=== PATIENT | female | born 1965 | race Caucasian/White ===

== ENCOUNTER 2017-09-13 11:44 | Emergency (ER) | payer MEDICARE, OTHER ==
[~2017-09-13] VITALS: Ht 162.6 cm; Wt 113.4 kg
[~2017-09-13 11:44] MED LIST: AMBIEN 5 MG TABL5 M1 PO; AMLODIPINE BESY10 MG PO; ASPIR 8181 M1 PO; AZOR 5-20 MG T1 EACH; CLONAZEPAM 0.50.5 M1 PO; FISH OIL 1,001000 M2; HYDROCODONE-AP1 EAC6 PO; INVOKANA100 MG PO; INVOKANA300 MG PO; JANUVIA100 MG PO; JANUVIA50 MG PO; LEVSIN0.125 MG PO; LEXAPRO 10 MG T10 M1 PO; METFORMIN HCL500 MG PO; MINIPRIN81 MG; NEURONTIN 300300 M1 PO; SIMVASTATIN40 MG PO; ZOCOR80 MG
[2017-09-13] MEDS ORDERED: INVOKANA100 MG PO (11:55)
[2017-09-13] MEDS ORDERED: JANUVIA25 MG PO (11:55)
[2017-09-13] MEDS ORDERED: PROPRANOLOL 1010 MG PO (11:56)
[2017-09-13 12:02] LABS: URINE BILIRUBIN NEGATIVE (Negative); URINE BLOOD NEGATIVE (Negative); URINE CLARITY CLEAR; URINE COLOR YELLOW; URINE GLUCOSE-RANDOM 3+ (Negative); URINE KETONES NEGATIVE (Negative); URINE LEUKOCYTES-REFLEX NEGATIVE (Negative); URINE NITRITE-REFLEX NEGATIVE (Negative); URINE PROTEIN NEGATIVE (Negative); URINE SPECIFIC GRAVITY 1.015 (1.005-1.030); URINE UROBILINOGEN 0.2 E.U./dl (0.2-1.0)
[2017-09-13 12:43] LABS: ABSOLUTE EOSINOPHILS 0.1 thou/uL (0.0-0.7); ABSOLUTE LYMPHOCYTES 2.4 thou/uL (0.8-5.3); ABSOLUTE MONOCYTES 0.6 thou/uL (0.0-1.2); ABSOLUTE NEUTROPHILS 3.7 thou/uL (1.6-8.1); ANION GAP 10 mmol/L (7-16); BASOPHILS 0.6 %; BUN 17 mg/dL (7-18); CALCIUM 9.3 mg/dL (8.5-10.1); CHLORIDE 104 mmol/L (98-107); CO2 25 mmol/L (21-32); CREATININE 0.5 mg/dL (0.6-1.3); EOSINOPHILS 0.9 %; GLUCOSE 116 mg/dL (70-99); HEMATOCRIT 44.6 % (37.0-47.0); HEMOGLOBIN 15.3 gm/dL (12.0-15.0); LYMPHOCYTES 34.8 %; MCH 30.4 pg (26.0-34.0); MCHC 34.2 g/dL (28.0-37.0); MCV 88.9 fL (80.0-100.0); MONOCYTES 9.4 %; MPV 7.5 fl. (7.2-11.1); NUCLEATED RBCS 0 /100WBC; PLATELET COUNT* 202 thou/uL (150-400); POLYS 54.3 %; POTASSIUM 4.7 mmol/L (3.5-5.1); RBC 5.02 mil/uL (4.20-5.00); RDW-CV 12.9 % (10.5-14.5); SODIUM 139 mmol/L (136-145); WBC 6.9 thou/uL (4.0-11.0)
[2017-09-13 12:49] LABS: ALBUMIN 3.9 g/dL (3.4-5.0); ALKALINE PHOSPHATASE 86 U/L (46-116); LIPASE 137 U/L (73-393); SGOT 64 U/L (15-37); SGPT 103 U/L (30-65); TOTAL BILIRUBIN 0.5 mg/dL (<0.1-1.0); TOTAL PROTEIN 7.3 g/dL (6.4-8.2); TROPONIN-I LEVEL <0.06 ng/mL (<0.06)
[2017-09-13 13:03] LABS: PLATELET ESTIMATE ADEQUATE
[2017-09-13] MEDS ORDERED: CIPROFLOXACIN500 M1 PO (13:47)
[2017-09-13 14:06] VITALS: BP 195/98
--- NOTE | 2017-09-14 12:32 | EKG ---
[place] [address] ELECTROCARDIOGRAM REPORT Name: PAVITHRA PURI Room: [facility]#: [id number] Admission: 09/13/17 Attend Phys: Discharge: 09/13/17 Date of : 63 Report #: [id number] THIS REPORT FOR: //name// [facility] ED Test Date: 2017-09-13 Test Time: 12:04:44 Pat Name: PAVITHRA PURI Department: Room: Gender: F Accounts Payable Assistant: DENI : 1965 Requested By: Per Rocha Order Number: [id number] MD: Lars Benito Measurements Intervals [place] Rate: 91 P: 55 [place]: 132 QRS: 50 QRSD: 96 T: 58 QT: 366 QTc: 451 Interpretive Statements Sinus rhythm Baseline wander in lead(s) V2,V5 Compared to ECG 10/05/2010 09:04:42 Sinus tachycardia no longer present ST (T wave) deviation no longer present Electronically Signed On 09-14-2017 12:32:41 PRODUCT PLANNER by Lars Benito [email or web address] <ELECTRONICALLY SIGNED> By: Lars Benito MD, FAC 09/14/17 1232 1204 1204 Lars Benito MD, [facility] /EPI
== END 2017-09-13 14:07 | disposition home or self-care (01) ==
LOC: M.ERS 11:44
PROVIDERS: Family Medicine
DX: R19.7 Diarrhea, unspecified (principal); I10 Essential (primary) hypertension; E11.9 Type 2 diabetes mellitus without complications; E78.5 Hyperlipidemia, unspecified; M19.90 Unspecified osteoarthritis, unspecified site; G47.30 Sleep apnea, unspecified; Z90.710 Acquired absence of both cervix and uterus

== ENCOUNTER 2018-05-03 07:09 | Emergency (ER) | payer MEDICARE, OTHER ==
[~2018-05-03] VITALS: Ht 162.6 cm; Wt 117.9 kg
[~2018-05-03 07:09] MED LIST changes: +CIPROFLOXACIN500 M1 PO; +JANUVIA25 MG PO; +PROPRANOLOL 1010 MG PO
[2018-05-03] MEDS ORDERED: LIPITOR 20 MG T20 M1 PO (07:25)
[2018-05-03] MEDS ORDERED: NORVASC5 MG PO (07:25)
[2018-05-03] MEDS ORDERED: AMITRIPTYLINE H25 M2 PO (07:25)
[2018-05-03] MEDS ORDERED: FARXIGA5 MG PO (07:26)
[2018-05-03] MEDS ORDERED: ESCITALOPRAM OX20 MG PO (07:26)
[2018-05-03] MEDS ORDERED: ZANAFLEX4 MG PO (07:27)
[2018-05-03] MEDS ORDERED: TRULICITY1.5 MG/0.5 INJECTION (07:28)
[2018-05-03] MEDS ORDERED: ACETAMINOPHEN-1 EAC1 PO (07:34)
[2018-05-03] MEDS ORDERED: AMOXICILLI400 MG/5 M PO (07:34)
[2018-05-03] MEDS ORDERED: Magic Mouthwash (07:34)
[2018-05-03 07:37] VITALS: BP 158/101
== END 2018-05-03 07:41 | disposition home or self-care (01) ==
LOC: M.ERS 07:09
DX: J03.80 Acute tonsillitis due to other specified organisms (principal); B96.89 Other specified bacterial agents as the cause of diseases classified elsewhere; I10 Essential (primary) hypertension; E78.5 Hyperlipidemia, unspecified; E11.9 Type 2 diabetes mellitus without complications; M79.7 Fibromyalgia; M19.90 Unspecified osteoarthritis, unspecified site; G47.30 Sleep apnea, unspecified; Z90.710 Acquired absence of both cervix and uterus

== ENCOUNTER 2018-05-14 09:51 | Emergency (ER) | payer MEDICARE, OTHER ==
[~2018-05-14] VITALS: Ht 162.6 cm; Wt 117.9 kg
[~2018-05-14 09:51] MED LIST changes: +ACETAMINOPHEN-1 EAC1 PO; +AMITRIPTYLINE H25 M2 PO; +AMOXICILLI400 MG/5 M PO; +ESCITALOPRAM OX20 MG PO; +FARXIGA5 MG PO; +LIPITOR 20 MG T20 M1 PO; +Magic Mouthwash; +NORVASC5 MG PO; +TRULICITY1.5 MG/0.5 INJECTION; +ZANAFLEX4 MG PO
[2018-05-14 10:37] LABS: ABSOLUTE LYMPHOCYTES 1.5 thou/uL (0.8-5.3); ABSOLUTE MONOCYTES 0.5 thou/uL (0.0-1.2); ABSOLUTE NEUTROPHILS 2.1 thou/uL (1.6-8.1); BASOPHILS 0.5 %; EOSINOPHILS 1.1 %; HEMATOCRIT 43.1 % (37.0-47.0); HEMOGLOBIN 14.5 gm/dL (12.0-15.0); LYMPHOCYTES 36.4 %; MCH 30.6 pg (26.0-34.0); MCHC 33.6 g/dL (28.0-37.0); MCV 90.9 fL (80.0-100.0); MONOCYTES 11.1 %; MPV 6.7 fl. (7.2-11.1); NUCLEATED RBCS 0 /100WBC; PLATELET COUNT* 265 thou/uL (150-400); POLYS 50.9 %; RBC 4.74 mil/uL (4.20-5.00); RDW-CV 12.7 % (10.5-14.5); WBC 4.1 thou/uL (4.0-11.0)
[2018-05-14 10:38] LABS: URINE BILIRUBIN NEGATIVE (Negative); URINE BLOOD NEGATIVE (Negative); URINE CLARITY CLEAR; URINE COLOR YELLOW; URINE GLUCOSE-RANDOM 3+ (Negative); URINE KETONES NEGATIVE (Negative); URINE LEUKOCYTES-REFLEX NEGATIVE (Negative); URINE NITRITE-REFLEX NEGATIVE (Negative); URINE PROTEIN NEGATIVE (Negative); URINE SPECIFIC GRAVITY 1.025 (1.005-1.030); URINE UROBILINOGEN 0.2 E.U./dl (0.2-1.0)
[2018-05-14 10:45] LABS: ANION GAP 5 mmol/L (7-16); BUN 17 mg/dL (7-18); CHLORIDE 106 mmol/L (98-107); CO2 26 mmol/L (21-32); CREATININE 0.5 mg/dL (0.6-1.3); GLUCOSE 194 mg/dL (70-99); POTASSIUM 4.6 mmol/L (3.5-5.1); SODIUM 137 mmol/L (136-145)
[2018-05-14 10:56] LABS: ALBUMIN 3.9 g/dL (3.4-5.0); ALKALINE PHOSPHATASE 96 U/L (46-116); LIPASE 147 U/L (73-393); SGOT 50 U/L (15-37); SGPT 103 U/L (30-65); TOTAL BILIRUBIN 0.3 mg/dL (<0.1-1.0); TOTAL PROTEIN 7.3 g/dL (6.4-8.2); TROPONIN-I LEVEL <0.06 ng/mL (<0.06)
[2018-05-14] MEDS ORDERED: MEDROLDOSEPACK PO (11:43)
[2018-05-14 12:08] VITALS: BP 157/93
--- NOTE | 2018-05-14 16:41 | EKG ---
[place] [address] ELECTROCARDIOGRAM REPORT Name: PAVITHRA PURI Room: [facility]#: [id number] Admission: 05/14/18 Attend Phys: Discharge: 05/14/18 Date of : 63 Report #: [id number] THIS REPORT FOR: //name// [facility] ED Test Date: 2018-05-14 Test Time: 10:37:05 Pat Name: PAVITHRA PURI Department: Room: Gender: F Metallurgical Lab Technician: Linda ALEJANDRE : 1965 Requested By: Cheri Priest Order Number: [id number] MD: Lars Benito Measurements Intervals [place] Rate: 82 P: 45 [place]: 134 QRS: 52 QRSD: 97 T: 55 QT: 363 QTc: 424 Interpretive Statements Sinus rhythm Compared to ECG 09/13/2017 12:04:44 No significant changes Electronically Signed On 05-14-2018 16:41:00 CDT by Lars Benito [email or web address] <ELECTRONICALLY SIGNED> By: Lars Benito MD, [facility] 05/14/18 1641 1037 1037 Lars Benito MD, FACC /EPI
== END 2018-05-14 12:09 | disposition home or self-care (01) ==
LOC: M.ERS 09:51
PROVIDERS: Physician Assistant Surgical
DX: J32.1 Chronic frontal sinusitis (principal); J32.0 Chronic maxillary sinusitis; R06.02 Shortness of breath; I10 Essential (primary) hypertension; E78.5 Hyperlipidemia, unspecified; E11.9 Type 2 diabetes mellitus without complications; M79.7 Fibromyalgia; M19.90 Unspecified osteoarthritis, unspecified site; G47.30 Sleep apnea, unspecified; G35 Multiple sclerosis; Z90.710 Acquired absence of both cervix and uterus; Z88.5 Allergy status to narcotic agent

== ENCOUNTER 2018-06-02 18:53 | Emergency (ER) | payer MEDICARE, OTHER ==
[~2018-06-02] VITALS: Ht 162.6 cm; Wt 117.0 kg
[~2018-06-02 18:53] MED LIST changes: +MEDROLDOSEPACK PO
[2018-06-02] MEDS ORDERED: OCREVUS300 MG/10 IV (19:04)
[2018-06-02 19:19] LABS: URINE BILIRUBIN NEGATIVE (Negative); URINE BLOOD TRACE (Negative); URINE CLARITY SL CLOUDY; URINE COLOR YELLOW; URINE GLUCOSE-RANDOM 3+ (Negative); URINE KETONES NEGATIVE (Negative); URINE LEUKOCYTES-REFLEX NEGATIVE (Negative); URINE NITRITE-REFLEX NEGATIVE (Negative); URINE PROTEIN TRACE (Negative); URINE UROBILINOGEN 0.2 E.U./dl (0.2-1.0)
[2018-06-02 19:25] LABS: ABSOLUTE LYMPHOCYTES 1.3 thou/uL (0.8-5.3); ABSOLUTE MONOCYTES 0.8 thou/uL (0.0-1.2); ABSOLUTE NEUTROPHILS 6.4 thou/uL (1.6-8.1); BASOPHILS 0.5 %; EOSINOPHILS 0.3 %; HEMATOCRIT 41.8 % (37.0-47.0); HEMOGLOBIN 14.3 gm/dL (12.0-15.0); LYMPHOCYTES 15.6 %; MCH 30.3 pg (26.0-34.0); MCHC 34.2 g/dL (28.0-37.0); MCV 88.6 fL (80.0-100.0); MONOCYTES 9.1 %; MPV 6.4 fl. (7.2-11.1); NUCLEATED RBCS 0 /100WBC; PLATELET COUNT* 320 thou/uL (150-400); POLYS 74.5 %; RBC 4.72 mil/uL (4.20-5.00); RDW-CV 12.5 % (10.5-14.5); WBC 8.5 thou/uL (4.0-11.0)
[2018-06-02 19:26] LABS: SQUAMOUS NONE SEEN /LPF (0-3)
[2018-06-02 19:27] LABS: BACTERIA-REFLEX None Seen /HPF (None Seen); CASTS None Seen /LPF (None Seen); CRYSTALS None Seen /LPF (None Seen); MUCUS None Seen strn/LPF (None Seen); URINE RBC 0-2 Rare /HPF (0-2); URINE WBC-REFLEX None Seen /HPF (0-5)
[2018-06-02 19:32] LABS: CALCIUM 9.5 mg/dL (8.5-10.1); CREATININE 0.8 mg/dL (0.6-1.3); POTASSIUM 4.2 mmol/L (3.5-5.1)
[2018-06-02 19:37] LABS: ALBUMIN 3.5 g/dL (3.4-5.0); TOTAL BILIRUBIN 0.6 mg/dL (<0.1-1.0); TOTAL PROTEIN 7.2 g/dL (6.4-8.2)
[2018-06-02 20:44] LABS: INFLUENZA A ANTIGEN None Detected (None Detect); INFLUENZA B ANTIGEN None Detected (None Detect)
[2018-06-02 21:26] VITALS: BP 115/65
== END 2018-06-02 21:27 | disposition home or self-care (01) ==
LOC: M.ERS 18:53
PROVIDERS: Nurse Practitioner Family
DX: B34.9 Viral infection, unspecified (principal); I10 Essential (primary) hypertension; E78.5 Hyperlipidemia, unspecified; E11.9 Type 2 diabetes mellitus without complications; M19.90 Unspecified osteoarthritis, unspecified site; G47.30 Sleep apnea, unspecified; Z90.710 Acquired absence of both cervix and uterus; Z88.5 Allergy status to narcotic agent

== ENCOUNTER 2019-01-11 21:28 | Emergency (ER) | payer MEDICARE, OTHER ==
[~2019-01-11] VITALS: Ht 162.6 cm; Wt 113.4 kg
[~2019-01-11 21:28] MED LIST changes: +OCREVUS300 MG/10 IV
[2019-01-11] MEDS ORDERED: NEURONTIN600 MG (21:52)
[2019-01-11] MEDS ORDERED: BUSPIRONE HCL10 MG PO (21:53)
[2019-01-11 22:07] LABS: URINE BILIRUBIN NEGATIVE (Negative); URINE BLOOD NEGATIVE (Negative); URINE CLARITY CLEAR; URINE COLOR YELLOW; URINE GLUCOSE-RANDOM 3+ (Negative); URINE KETONES NEGATIVE (Negative); URINE LEUKOCYTES-REFLEX NEGATIVE (Negative); URINE NITRITE-REFLEX NEGATIVE (Negative); URINE PROTEIN NEGATIVE (Negative); URINE SPECIFIC GRAVITY 1.015 (1.005-1.030); URINE UROBILINOGEN 0.2 E.U./dl (0.2-1.0)
[2019-01-11 22:11] LABS: ABSOLUTE EOSINOPHILS 0.1 thou/uL (0.0-0.7); ABSOLUTE LYMPHOCYTES 1.5 thou/uL (0.8-5.3); ABSOLUTE MONOCYTES 0.5 thou/uL (0.0-1.2); ABSOLUTE NEUTROPHILS 1.9 thou/uL (1.6-8.1); BASOPHILS 0.6 %; EOSINOPHILS 1.6 %; HEMATOCRIT 42.1 % (37.0-47.0); HEMOGLOBIN 14.5 gm/dL (12.0-15.0); LYMPHOCYTES 37.9 %; MCH 30.2 pg (26.0-34.0); MCHC 34.5 g/dL (28.0-37.0); MCV 87.4 fL (80.0-100.0); MONOCYTES 13.5 %; MPV 6.9 fl. (7.2-11.1); NUCLEATED RBCS 0 /100WBC; PLATELET COUNT* 239 thou/uL (150-400); POLYS 46.4 %; RBC 4.81 mil/uL (4.20-5.00); WBC 4.1 thou/uL (4.0-11.0)
[2019-01-11 22:19] LABS: CALCIUM 10.1 mg/dL (8.5-10.1); CREATININE 0.8 mg/dL (0.6-1.3)
[2019-01-11 22:24] LABS: ALBUMIN 3.7 g/dL (3.4-5.0); TOTAL BILIRUBIN 0.3 mg/dL (<0.1-1.0); TOTAL PROTEIN 6.9 g/dL (6.4-8.2)
[2019-01-12 02:12] VITALS: BP 153/81
== END 2019-01-12 02:15 | disposition home or self-care (01) ==
LOC: M.ERS 21:28
PROVIDERS: Nurse Practitioner Family
DX: R10.32 Left lower quadrant pain (principal); M54.5 Low back pain; G47.30 Sleep apnea, unspecified; I10 Essential (primary) hypertension; E78.5 Hyperlipidemia, unspecified; E11.9 Type 2 diabetes mellitus without complications; G35 Multiple sclerosis; M19.90 Unspecified osteoarthritis, unspecified site; Z88.5 Allergy status to narcotic agent; Z90.710 Acquired absence of both cervix and uterus

== ENCOUNTER 2019-03-07 10:30 | Emergency (ER) | payer MEDICARE, OTHER ==
[~2019-03-07] VITALS: Ht 162.6 cm; Wt 113.4 kg
[~2019-03-07 10:30] MED LIST changes: +BUSPIRONE HCL10 MG PO; +NEURONTIN600 MG
[2019-03-07] MEDS ORDERED: AMBIEN 5 MG TABL5 M1 PO (10:37)
[2019-03-07 11:07] LABS: ABSOLUTE LYMPHOCYTES 1.4 thou/uL (0.8-5.3); ABSOLUTE MONOCYTES 0.6 thou/uL (0.0-1.2); ABSOLUTE NEUTROPHILS 2.6 thou/uL (1.6-8.1); BASOPHILS 0.4 %; EOSINOPHILS 0.7 %; HEMATOCRIT 45.5 % (37.0-47.0); HEMOGLOBIN 15.6 gm/dL (12.0-15.0); LYMPHOCYTES 30.3 %; MCHC 34.2 g/dL (28.0-37.0); MCV 90.5 fL (80.0-100.0); MONOCYTES 12.1 %; MPV 6.8 fl. (7.2-11.1); NUCLEATED RBCS 0 /100WBC; PLATELET COUNT* 290 thou/uL (150-400); POLYS 56.5 %; RBC 5.03 mil/uL (4.20-5.00); RDW-CV 13.7 % (10.5-14.5); WBC 4.6 thou/uL (4.0-11.0)
[2019-03-07 11:17] LABS: ANION GAP 8 mmol/L (7-16); BUN 18 mg/dL (7-18); CALCIUM 9.3 mg/dL (8.5-10.1); CHLORIDE 101 mmol/L (98-107); CO2 30 mmol/L (21-32); CREATININE 0.7 mg/dL (0.6-1.3); GLUCOSE 127 mg/dL (70-99); POTASSIUM 4.3 mmol/L (3.5-5.1); SODIUM 139 mmol/L (136-145)
[2019-03-07 11:26] LABS: ALBUMIN 4.5 g/dL (3.4-5.0); ALKALINE PHOSPHATASE 112 U/L (46-116); SGOT 34 U/L (15-37); SGPT 90 U/L (30-65); TOTAL BILIRUBIN 0.5 mg/dL (<0.1-1.0); TOTAL PROTEIN 7.8 g/dL (6.4-8.2); TROPONIN-I LEVEL <0.06 ng/mL (<0.06)
[2019-03-07] MEDS ORDERED: PROMETHAZINE V120 ML PO (12:10)
[2019-03-07] MEDS ORDERED: PROAIR HFA8.5 GM INH (12:10)
[2019-03-07] MEDS ORDERED: ZPAK PO (12:10)
[2019-03-07] MEDS ORDERED: MEDROLDOSEPACK PO (12:10)
[2019-03-07 12:27] VITALS: BP 144/69
--- NOTE | 2019-03-08 16:58 | EKG ---
[place] [address] ELECTROCARDIOGRAM REPORT Name: PAVITHRA PURI Room: [facility]#: [id number] Admission: 03/07/19 Attend Phys: Discharge: 03/07/19 Date of : 63 Report #: [id number] THIS REPORT FOR: //name// [facility] ED Test Date: 2019-03-07 Test Time: 10:43:10 Pat Name: PAVITHRA PURI Department: Room: Gender: F Croze Machine Operator: SHIRLEY : 1965 Requested By: Amrita Cherry Order Number: [id number] MD: Ashutosh Ovalles Measurements Intervals [place] Rate: 80 P: 32 MT: 131 QRS: 44 QRSD: 112 T: 62 QT: 385 QTc: 445 Interpretive Statements Sinus rhythm Probable septal infarct, old Minimal ST depression, lateral leads Baseline wander in lead(s) I,III,aVL,aVF,V3,V4,V5,V6 Compared to ECG 05/14/2018 10:37:05 no change Electronically Signed On 03-08-2019 16:57:47 CDT by Ashutosh Ovalles [email or web address] <ELECTRONICALLY SIGNED> By: Ashutosh Ovalles MD, [facility] 03/08/19 1657 1043 1043 Ashutosh Ovalles MD, [facility] /EPI
== END 2019-03-07 12:28 | disposition home or self-care (01) ==
LOC: M.ERS 10:30
PROVIDERS: Physician Assistant
DX: J21.9 Acute bronchiolitis, unspecified (principal); I10 Essential (primary) hypertension; E78.5 Hyperlipidemia, unspecified; E11.9 Type 2 diabetes mellitus without complications; G35 Multiple sclerosis; M19.90 Unspecified osteoarthritis, unspecified site; M79.7 Fibromyalgia; Z98.890 Other specified postprocedural states; Z90.49 Acquired absence of other specified parts of digestive tract; Z85.828 Personal history of other malignant neoplasm of skin; Z90.710 Acquired absence of both cervix and uterus; Z85.818 Personal history of malignant neoplasm of other sites of lip, oral cavity, and pharynx; Z88.5 Allergy status to narcotic agent

== ENCOUNTER → 2019-04-26 | Outpatient (CLI) | payer MEDICARE, OTHER ==
[~2019-04-26] MED LIST changes: +PROAIR HFA8.5 GM INH; +PROMETHAZINE V120 ML PO; +ZPAK PO
== END ==
LOC: M.RAD 12:55
DX: J84.10 Pulmonary fibrosis, unspecified (principal); R06.00 Dyspnea, unspecified; R05 Cough